=== PATIENT | female | born 1955 | race Caucasian/White ===

== ENCOUNTER 2024-03-25 13:39 | Inpatient (IN) | payer MEDICARE, OTHER ==
[~2024-03-25] VITALS: Ht 172.7 cm; Wt 97.1 kg
[2024-03-25] MEDS ORDERED: DIVA500T54 PO (14:11)
[2024-03-25] MEDS ORDERED: OLAN5TAB3 PO (14:11)
[2024-03-25] MEDS ORDERED: METH15TA3 PO (14:11)
[2024-03-25] MEDS ORDERED: LAMO200T10 PO (14:11)
[2024-03-25] MEDS ORDERED: FLUT1BLS4 IH (14:11)
[2024-03-25] MEDS ORDERED: GABA600T12 PO (14:11)
[2024-03-25] MEDS ORDERED: TRAM50TA2 PO (14:11)
[2024-03-25] MEDS ORDERED: FOLI1TAB94 PO (14:11)
[2024-03-25] MEDS ORDERED: BUSP15TA3 PO (14:11)
[2024-03-25] MEDS ORDERED: CYCL5TAB PO (14:11)
[2024-03-25] MEDS ORDERED: LIDO1ADH82 TP (14:11)
[2024-03-25] MEDS ORDERED: BUSP30TA2 PO (14:11)
[2024-03-25] MEDS ORDERED: POLY17PO4 PO (14:11)
[2024-03-25] MEDS ORDERED: MECL-159 PO (14:11)
[2024-03-25] MEDS ORDERED: SENN8.6T19 PO (14:11)
[2024-03-25] MEDS ORDERED: ACET-3117 PO (14:11)
[2024-03-25 15:35] LABS: BASOPHILS % (AUTO) 0.5 % (0.0-2.0); EOSINOPHILS # (AUTO) 0.1 K/uL (0.0-0.7); EOSINOPHILS % (AUTO) 2.9 % (0.0-7.0); HEMATOCRIT 39.5 % (31.2-41.9); HEMOGLOBIN 13.1 g/dL (10.9-14.3); LYMPHOCYTES # (AUTO) 1.5 K/uL (0.8-4.8); LYMPHOCYTES % (AUTO) 42.3 % (20.5-51.5); MEAN CORPUSCULAR HEMOGLOBIN 31.2 uug (24.7-32.8); MEAN CORPUSCULAR HGB CONC 33 g/dL (32.3-35.6); MEAN CORPUSCULAR VOLUME 94.1 fL (75.5-95.3); MONOCYTES # (AUTO) 0.5 K/uL (0.1-1.30); MONOCYTES % (AUTO) 15.5 % (0.0-11.0); NEUTROPHILS # (AUTO) 1.4 K/uL (1.8-8.9); NEUTROPHILS % (AUTO) 38.8 % (38.5-71.5); PLATELET COUNT (AUTO) 206 K/uL (179-408); RED BLOOD CELL COUNT(AUTO) 4.19 MIL/uL (3.63-4.92); RED CELL DISTRIBUTION WIDTH 14.2 % (12.3-17.7); WHITE BLOOD COUNT (AUTO) 3.5 K/uL (3.8-11.8)
[2024-03-25 15:40] LABS: DIFFERENTIAL COMMENT 1
[2024-03-25 15:47] LABS: CARBON DIOXIDE 28 mmol/L (21-32); CHLORIDE 101 mmol/L (98-107); CREATININE 0.8 mg/dL (0.6-1.3); GLUCOSE 92 mg/dL (74-106); POTASSIUM 3.6 mmol/L (3.5-5.1); SODIUM SERUM 137 mmol/L (136-145); UREA NITROGEN, BLOOD 10 mg/dL (7-18)
[2024-03-25 15:53] LABS: ACETAMINOPHEN < 2.0 ug/mL (10-30); ALANINE AMINOTRANSFERASE 17 U/L (14-59); ALBUMIN 3.1 g/dL (3.4-5.0); ALKALINE PHOSPHATASE 111 U/L (50-136); ASPARTATE AMINOTRANSFERASE 26 U/L (15-37); BILIRUBIN,DIRECT 0.2 mg/dL (0.0-0.2); BILIRUBIN,TOTAL 0.7 mg/dL (0.2-1.0); TOTAL PROTEIN, SERUM 6.2 g/dL (6.4-8.2)
[2024-03-25 16:05] LABS: ETHANOL < 3 MG/DL (0-10)
[2024-03-25 17:30] VITALS: BP 116/74; TEMP 98.7; O2SAT 95
[2024-03-25 19:58] VITALS: BP 120/72; TEMP 98.5
[2024-03-25] MEDS ORDERED: MAGNESIUM HYDROXIDE 30 ML LIQUID UDC PO PRN (21:30)
[2024-03-25] MEDS ORDERED: MAG HYDROX/AL HYDROX/SIMETH 30 ML LIQUID UDC PO PRN (21:30)
[2024-03-25] MEDS ORDERED: TEMAZEPAM 7.5 MG CAPSULE PO PRN (21:30)
[2024-03-25 21:35] LABS: BAND % (MANUAL) 1 % (0-10); EOSINOPHILS % (MANUAL) 1 % (0-8); LYMPHOCYTES % (MANUAL) 46 % (20-40); MONOCYTES % (MANUAL) 12 % (2-10); NEUTROPHILS % (MANUAL) 40 % (42-75)
[2024-03-25 21:36] LABS: ANISOCYTOSIS 1+; PLATELET ESTIMATE ADEQUATE
[2024-03-26] MEDS: LORAZEPAM 1 MG TABLET PO PRN (05:31)
[2024-03-26] MEDS: ACETAMINOPHEN 325 MG TABLET PO PRN (05:31)
[2024-03-26 08:13] VITALS: BP 113/52; TEMP 98.1; O2SAT 97
[2024-03-26 08:49] LABS: ALBUMIN 2.8 g/dL (3.4-5.0); BILIRUBIN,TOTAL 0.8 mg/dL (0.2-1.0); CALCIUM 8.9 mg/dL (8.5-10.1); CREATININE 0.9 mg/dL (0.6-1.3); POTASSIUM 3.7 mmol/L (3.5-5.1); TOTAL PROTEIN, SERUM 5.8 g/dL (6.4-8.2)
[2024-03-26 13:16] LABS: THYROID STIMULATING HORMONE 2.161 mIU/mL (0.358-3.740)
[2024-03-26 16:53] VITALS: BP 123/72; TEMP 98; O2SAT 97
[2024-03-26] MEDS ORDERED: TRAMADOL HCL 50 MG TABLET PO PRN (17:30)
[2024-03-26] MEDS ORDERED: METHOTREXATE SODIUM 15 MG PO SCH (17:30)
[2024-03-26] MEDS ORDERED: MECLIZINE HCL 25 MG TABLET PO PRN (17:30)
[2024-03-26] MEDS: GABAPENTIN 300 MG CAPSULE PO SCH (18:09)
[2024-03-26] MEDS: LORAZEPAM 0.5 MG TABLET PO PRN (20:55)
[2024-03-26] MEDS: CYCLOBENZAPRINE HCL 10 MG TABLET PO SCH (20:55)
[2024-03-26 21:21] VITALS: BP 115/54; TEMP 98; O2SAT 98
[2024-03-27 07:59] VITALS: BP 97/49; TEMP 98.1; O2SAT 96
[2024-03-27] MEDS: SENNOSIDES 1 TABLET PO SCH (08:20)
[2024-03-27] MEDS: MIRALAX 17 GM POWD.PACK PO SCH (08:20)
[2024-03-27] MEDS: METHOTREXATE SODIUM 2.5 MG TABLET PO SCH (08:24)
[2024-03-27] MEDS: FOLIC ACID 1 MG TABLET PO SCH (08:25)
[2024-03-27 15:57] LABS: THYROID STIMULATING HORMONE 2.155 mIU/mL (0.358-3.740)
[2024-03-27 16:33] VITALS: BP 101/53; TEMP 98; O2SAT 96
[2024-03-27 19:48] VITALS: BP 106/55; TEMP 98.1; O2SAT 96
[2024-03-27] MEDS: TEMAZEPAM 7.5 MG CAPSULE PO PRN (22:11)
[2024-03-28 07:58] VITALS: BP 94/53; TEMP 98.5; O2SAT 96
[2024-03-28 08:02] VITALS: BP 99/53; TEMP 98.5; O2SAT 96
[2024-03-28] MEDS: GABAPENTIN 400 MG CAPSULE PO SCH (12:25)
[2024-03-28 16:21] VITALS: BP 112/63; TEMP 98.3; O2SAT 97
[2024-03-28 20:03] VITALS: BP 111/56; TEMP 98.1; O2SAT 96
[2024-03-29 08:23] VITALS: BP 96/45; TEMP 98.2; O2SAT 91
[2024-03-29] MEDS: OLANZAPINE 5 MG TABLET PO SCH (12:18)
[2024-03-29] MEDS: DIVALPROEX 500 MG TABLET.DR PO SCH (12:18)
[2024-03-29 15:00] VITALS: BP 100/52; TEMP 98.2; O2SAT 93
[2024-03-29 19:48] VITALS: BP 110/56; TEMP 98.1; O2SAT 96
[2024-03-29] MEDS: ATORVASTATIN 10 MG TABLET PO SCH (20:19)
[2024-03-30 07:39] VITALS: BP 119/75; TEMP 98.2; O2SAT 99
[2024-03-30 12:09] LABS: *BILIRUBIN,URIN NEGATIVE (NEGATIVE); *BLOOD, URINE NEGATIVE (NEGATIVE); *CLARITY,URINE CLEAR (CLEAR); *COLOR,URINE YELLOW (YELLOW); *KETONES,URINE NEGATIVE (NEGATIVE); *PROTEIN,URINE NEGATIVE (NEGATIVE); *UROBILINOGEN,URINE 0.2 E.U./dl (NORMAL); LEUKOCYTE ESTERASE ,URINE TRACE (NEGATIVE); NITRITE, URINE NEGATIVE (NEGATIVE); UGLUCOSE NEGATIVE (NEGATIVE)
[2024-03-30 15:02] LABS: BACTERIA,URINE NONE SEEN /HPF (NONE SEEN); RBC,URINE 0-3 /HPF (0-3); SQUAMOUS EPITHELIAL CELL,UR FEW /HPF (NONE SEEN); WBC,URINE 0-3 /HPF (0-3)
[2024-03-30 15:55] VITALS: BP 106/59; TEMP 98; O2SAT 98
[2024-03-30] MEDS: TRAMADOL HCL 50 MG TABLET PO PRN (17:39)
[2024-03-30 20:00] VITALS: BP 108/60; TEMP 98.1; O2SAT 99
[2024-03-31 07:50] VITALS: BP 116/54; TEMP 98.2; O2SAT 94
[2024-03-31 15:27] VITALS: BP 125/57; TEMP 98.4; O2SAT 100
[2024-03-31 20:00] VITALS: BP 99/54; TEMP 98.1; O2SAT 96
[2024-04-01] MEDS: LIDOCAINE 5% PATCH TD PRN (05:47)
[2024-04-01 07:48] VITALS: BP 100/49; TEMP 98.2; O2SAT 99
[2024-04-01 15:38] VITALS: BP 102/60; TEMP 98.2; O2SAT 98
[2024-04-01 19:47] VITALS: BP 105/60; TEMP 98.3; O2SAT 97
[2024-04-02 07:40] VITALS: BP 101/52; TEMP 98; O2SAT 96
[2024-04-02 16:13] VITALS: BP 110/59; TEMP 98.4; O2SAT 98
[2024-04-02 19:41] VITALS: BP 105/56; TEMP 98.2; O2SAT 96
[2024-04-03 07:53] VITALS: BP 98/50; TEMP 97.8; O2SAT 96
[2024-04-03 15:26] VITALS: BP 98/63; TEMP 98; O2SAT 99
[2024-04-03 20:03] VITALS: BP 104/50; TEMP 98.1; O2SAT 98
[2024-04-04 08:01] VITALS: BP 111/60; TEMP 98; O2SAT 98
[2024-04-04] MEDS ORDERED: MINERAL OIL/PETROLATUM,WHITE 57 GM TUBE TOP PRN (10:45)
[2024-04-04 15:51] VITALS: BP 110/72; TEMP 99.4; O2SAT 96
[2024-04-04] MEDS: DIVALPROEX 500 MG TABLET.DR PO SCH ×2 (16:33→20:29)
[2024-04-04 19:46] VITALS: BP 106/51; TEMP 98; O2SAT 100
[2024-04-05 07:42] VITALS: BP 95/52; TEMP 98.2; O2SAT 100
[2024-04-05 08:05] LABS: BASOPHILS % (AUTO) 0.9 % (0.0-2.0); EOSINOPHILS # (AUTO) 0.1 K/uL (0.0-0.7); HEMATOCRIT 38.3 % (31.2-41.9); HEMOGLOBIN 12.9 g/dL (10.9-14.3); LYMPHOCYTES # (AUTO) 1.2 K/uL (0.8-4.8); MEAN CORPUSCULAR HEMOGLOBIN 31.4 uug (24.7-32.8); MEAN CORPUSCULAR HGB CONC 34 g/dL (32.3-35.6); MEAN CORPUSCULAR VOLUME 93.3 fL (75.5-95.3); MONOCYTES # (AUTO) 0.4 K/uL (0.1-1.30); NEUTROPHILS # (AUTO) 1.4 K/uL (1.8-8.9); NEUTROPHILS % (AUTO) 44.1 % (38.5-71.5); PLATELET COUNT (AUTO) 197 K/uL (179-408); RED BLOOD CELL COUNT(AUTO) 4.11 MIL/uL (3.63-4.92); RED CELL DISTRIBUTION WIDTH 14.5 % (12.3-17.7); WHITE BLOOD COUNT (AUTO) 3.2 K/uL (3.8-11.8)
[2024-04-05 08:09] LABS: DIFFERENTIAL COMMENT 1
[2024-04-05 08:42] LABS: ALBUMIN 2.6 g/dL (3.4-5.0); BILIRUBIN,TOTAL 0.5 mg/dL (0.2-1.0); CALCIUM 8.6 mg/dL (8.5-10.1); POTASSIUM 4.7 mmol/L (3.5-5.1); TOTAL PROTEIN, SERUM 5.7 g/dL (6.4-8.2)
[2024-04-05 08:56] LABS: CREATININE 0.6 mg/dL (0.6-1.3)
[2024-04-05 15:04] VITALS: BP 107/61; TEMP 99.2; O2SAT 96
[2024-04-05 19:43] VITALS: BP 106/60; TEMP 98.2; O2SAT 96
[2024-04-06 08:07] VITALS: BP 112/62; TEMP 98; O2SAT 99
[2024-04-06 15:14] VITALS: BP 133/69; TEMP 97.6; O2SAT 94
[2024-04-06 20:00] VITALS: BP 118/65; TEMP 98.2; O2SAT 95
[2024-04-07 08:12] VITALS: BP 118/54; TEMP 98; O2SAT 98
[2024-04-07 15:31] VITALS: BP 95/61; TEMP 98; O2SAT 98
[2024-04-07 20:00] VITALS: BP 113/59; TEMP 98; O2SAT 94
[2024-04-08 08:06] VITALS: BP 94/51; TEMP 98; O2SAT 99
== END 2024-04-08 14:20 | DRG 885 ==
LOC: ER 13:39 → GPS 15:22
PROVIDERS: ADMIT Psychiatry & Neurology Psychosomatic Medicine; ATTEND Nurse Practitioner Acute Care
DX: F31.2 Bipolar disorder, current episode manic severe with psychotic features (principal); L40.50 Arthropathic psoriasis, unspecified; E44.0 Moderate protein-calorie malnutrition; D68.59 Other primary thrombophilia; I69.320 Aphasia following cerebral infarction; E66.01 Morbid (severe) obesity due to excess calories; Z68.32 Body mass index [BMI] 32.0-32.9, adult; Z91.199 Patient's noncompliance with other medical treatment and regimen due to unspecified reason; E88.09 Other disorders of plasma-protein metabolism, not elsewhere classified; J45.909 Unspecified asthma, uncomplicated; G89.29 Other chronic pain; M48.061 Spinal stenosis, lumbar region without neurogenic claudication; G62.9 Polyneuropathy, unspecified; Z79.51 Long term (current) use of inhaled steroids
CPT/HCPCS: 36415; 70030-TC; 70450; 80164; 83921; 84443; 85025; 93005; G0480; J8597; J8610

== ENCOUNTER 2024-08-01 20:27 | Inpatient (IN) | payer MEDICARE, OTHER ==
[~2024-08-01] VITALS: Ht 162.6 cm; Wt 78.0 kg
[~2024-08-01 20:27] MED LIST: ACET-3117 PO; CYCL5TAB PO; FLUT1BLS4 IH; FOLI1TAB94 PO; GABA600T12 PO; LIDO1ADH82 TP; MECL-159 PO; METH15TA3 PO; POLY17PO4 PO; SENN8.6T19 PO; TRAM50TA2 PO
[2024-08-01 21:56] LABS: BASOPHILS % (AUTO) 0.9 % (0.0-2.0); EOSINOPHILS # (AUTO) 0.1 K/uL (0.0-0.7); EOSINOPHILS % (AUTO) 2.7 % (0.0-7.0); HEMATOCRIT 39.3 % (31.2-41.9); HEMOGLOBIN 13.4 g/dL (10.9-14.3); LYMPHOCYTES # (AUTO) 1.8 K/uL (0.8-4.8); LYMPHOCYTES % (AUTO) 41.1 % (20.5-51.5); MEAN CORPUSCULAR HEMOGLOBIN 31.1 uug (24.7-32.8); MEAN CORPUSCULAR HGB CONC 34 g/dL (32.3-35.6); MEAN CORPUSCULAR VOLUME 91.1 fL (75.5-95.3); MONOCYTES # (AUTO) 0.6 K/uL (0.1-1.30); MONOCYTES % (AUTO) 13.6 % (0.0-11.0); NEUTROPHILS # (AUTO) 1.8 K/uL (1.8-8.9); NEUTROPHILS % (AUTO) 41.7 % (38.5-71.5); PLATELET COUNT (AUTO) 212 K/uL (179-408); RED BLOOD CELL COUNT(AUTO) 4.32 MIL/uL (3.63-4.92); RED CELL DISTRIBUTION WIDTH 13.1 % (12.3-17.7); WHITE BLOOD COUNT (AUTO) 4.4 K/uL (3.8-11.8)
[2024-08-01 22:00] LABS: DIFFERENTIAL COMMENT 1
[2024-08-01 22:12] LABS: ALBUMIN 3.1 g/dL (3.4-5.0); BILIRUBIN,DIRECT 0.2 mg/dL (0.0-0.2); BILIRUBIN,TOTAL 0.5 mg/dL (0.2-1.0); CALCIUM 8.8 mg/dL (8.5-10.1); CREATININE 0.9 mg/dL (0.6-1.3); POTASSIUM 3.8 mmol/L (3.5-5.1); TOTAL PROTEIN, SERUM 7.1 g/dL (6.4-8.2)
[2024-08-01] MEDS ORDERED: CHOL2000 PO (22:45)
[2024-08-01] MEDS ORDERED: ATOR10TA PO (22:45)
[2024-08-01] MEDS ORDERED: CYCL30DR EACHEYE (22:45)
[2024-08-01] MEDS ORDERED: BUSP30TA2 PO (22:45)
[2024-08-01] MEDS ORDERED: DEXA6TAB6 PO (22:45)
[2024-08-01] MEDS ORDERED: BUSP15TA3 PO (22:45)
[2024-08-01] MEDS ORDERED: OLAN5TAB70 PO (22:52)
[2024-08-01] MEDS ORDERED: FERR325T28 PO (22:52)
[2024-08-01] MEDS ORDERED: LAMO200T10 PO (22:52)
[2024-08-01] MEDS ORDERED: ESCI5TAB16 PO (22:52)
[2024-08-02] MEDS ORDERED: LORAZEPAM 0.5 MG TABLET PO PRN (02:00)
[2024-08-02] MEDS ORDERED: TEMAZEPAM 7.5 MG CAPSULE PO PRN (02:00)
[2024-08-02] MEDS ORDERED: MAGNESIUM HYDROXIDE 30 ML LIQUID UDC PO PRN (02:00)
[2024-08-02] MEDS ORDERED: MAG HYDROX/AL HYDROX/SIMETH 30 ML LIQUID UDC PO PRN (02:00)
[2024-08-02 02:05] VITALS: BP 110/80; TEMP 97.8; O2SAT 95
[2024-08-02] MEDS: TEMAZEPAM 7.5 MG CAPSULE PO PRN (03:26)
[2024-08-02 08:04] VITALS: BP 105/42; TEMP 98; O2SAT 96
[2024-08-02] MEDS: LAMOTRIGINE 100 MG TABLET PO SCH (12:05)
[2024-08-02] MEDS: OLANZAPINE 5 MG TABLET PO SCH ×2 (12:05→21:03)
[2024-08-02] MEDS: LORAZEPAM 0.5 MG TABLET PO PRN (12:06)
[2024-08-02 16:02] VITALS: BP 112/51; TEMP 98.1; O2SAT 100
[2024-08-02] MEDS: ACETAMINOPHEN 325 MG TABLET PO PRN (18:26)
[2024-08-02 20:00] VITALS: BP 148/74; TEMP 98.1; O2SAT 97
[2024-08-03 08:02] VITALS: BP 109/50; TEMP 98; O2SAT 96
[2024-08-03 16:01] VITALS: BP 132/60; TEMP 97.8; O2SAT 95
[2024-08-03] MEDS ORDERED: ALBU2.5V38 IH (17:17)
[2024-08-03] MEDS ORDERED: ALBUTEROL SULFATE 2.5 MG/3 ML NEBU IH PRN (17:45)
[2024-08-03] MEDS ORDERED: METHOTREXATE SODIUM 15 MG PO SCH (17:45)
[2024-08-03 20:20] VITALS: BP 131/67; TEMP 98.2; O2SAT 95
[2024-08-03] MEDS: ATORVASTATIN 10 MG TABLET PO SCH (21:10)
[2024-08-03] MEDS: CYCLOBENZAPRINE HCL 10 MG TABLET PO SCH (21:10)
[2024-08-04 07:37] VITALS: BP 104/54; TEMP 97.2; O2SAT 97
[2024-08-04] MEDS: FOLIC ACID 1 MG TABLET PO SCH (08:55)
[2024-08-04] MEDS: CHOLECALCIFEROL 1,000 UNIT TABLET PO SCH (08:56)
[2024-08-04 16:00] VITALS: BP 133/77; TEMP 97.6; O2SAT 97
[2024-08-04 19:54] VITALS: BP 100/63; TEMP 98; O2SAT 97
[2024-08-05 08:02] VITALS: BP 89/51; TEMP 98.1; O2SAT 96
[2024-08-05 12:54] VITALS: BP 99/55; O2SAT 96
[2024-08-05 16:02] VITALS: BP 103/51; TEMP 97.6; O2SAT 98
[2024-08-05] MEDS: OLANZAPINE 2.5 MG TABLET PO SCH (17:36)
[2024-08-05 20:00] VITALS: BP 101/60; TEMP 98.1; O2SAT 96
[2024-08-05] MEDS: OLANZAPINE 5 MG TABLET PO SCH (21:04)
[2024-08-06 08:55] VITALS: BP 95/41; TEMP 98.2; O2SAT 96
[2024-08-06 16:06] VITALS: BP 100/35; TEMP 97.6; O2SAT 98
[2024-08-06] MEDS: OLANZAPINE 5 MG TABLET PO SCH (17:00)
[2024-08-06 20:06] VITALS: BP 103/58; TEMP 98.6; O2SAT 94
[2024-08-06] MEDS: OLANZAPINE 2.5 MG TABLET PO SCH (20:44)
[2024-08-07 08:06] VITALS: BP 84/65; TEMP 98.6; O2SAT 96
[2024-08-07] MEDS: METHOTREXATE SODIUM 2.5 MG TABLET PO SCH (08:20)
[2024-08-07 16:06] VITALS: BP 106/77; TEMP 98.1; O2SAT 98
[2024-08-07 19:44] VITALS: BP 116/58; TEMP 98.5; O2SAT 98
[2024-08-08 08:04] VITALS: BP 108/56; TEMP 98.1; O2SAT 98
[2024-08-08 16:06] VITALS: BP 112/66; TEMP 98.3; O2SAT 96
[2024-08-08 20:00] VITALS: BP 96/64; TEMP 98.7; O2SAT 96
[2024-08-09 08:10] VITALS: BP 84/49; TEMP 98.6; O2SAT 96
[2024-08-09 16:10] VITALS: BP 94/59; TEMP 97.6; O2SAT 100
[2024-08-09 21:17] VITALS: BP 110/67; TEMP 98.1; O2SAT 95
[2024-08-10 07:30] VITALS: BP 118/55; TEMP 98.2; O2SAT 94
[2024-08-10 18:23] VITALS: BP 94/67; TEMP 98.2; O2SAT 96
[2024-08-10 20:10] VITALS: BP 111/64; TEMP 98.1; O2SAT 96
[2024-08-11 07:44] VITALS: BP 96/46; TEMP 97.6; O2SAT 97
[2024-08-11 14:59] VITALS: BP 90/40; TEMP 98.3; O2SAT 100
[2024-08-11 20:00] VITALS: BP_SYST 105; BP_SYST 98; BP_DIAS 45; BP_DIAS 73; TEMP 97.9; TEMP 98.5; O2SAT 100; O2SAT 99
[2024-08-12 08:02] VITALS: BP 99/45; TEMP 98; O2SAT 98
== END 2024-08-12 16:00 | DRG 885 ==
LOC: ER 20:30 → GPS 23:00
PROVIDERS: ADMIT Psychiatry & Neurology Psychosomatic Medicine; ATTEND Internal Medicine
DX: F31.9 Bipolar disorder, unspecified (principal); L40.50 Arthropathic psoriasis, unspecified; E44.1 Mild protein-calorie malnutrition; D68.59 Other primary thrombophilia; R62.7 Adult failure to thrive; Z68.29 Body mass index [BMI] 29.0-29.9, adult; M62.81 Muscle weakness (generalized); J45.909 Unspecified asthma, uncomplicated; R41.89 Other symptoms and signs involving cognitive functions and awareness; R26.81 Unsteadiness on feet; Z91.81 History of falling; G89.29 Other chronic pain; Z88.2 Allergy status to sulfonamides; Z86.16 Personal history of COVID-19; R29.6 Repeated falls; Z88.5 Allergy status to narcotic agent; G31.84 Mild cognitive impairment of uncertain or unknown etiology; E88.09 Other disorders of plasma-protein metabolism, not elsewhere classified; E66.9 Obesity, unspecified; G62.9 Polyneuropathy, unspecified; F41.9 Anxiety disorder, unspecified
CPT/HCPCS: 36415; 85025; J8610